=== PATIENT | male | born 1950 | race Caucasian/White ===

== ENCOUNTER → 2016-12-04 | Outpatient (CLI) | payer MEDICARE, OTHER ==
[~2016-12-04] MED LIST: ASCO500C PO; ATOR10TA15 PO; CELE50CA PO; CHOL1CAP6 PO; CITA20TA4 PO; CLON0.5T PO; DILA100C PO; FLOR250C PO; HYDR12.56 PO; LATA.005%O RIGHT EYE; LEVA750T PO; LISI-515 PO; MIAC200S NASAL; PREV4POW PO; VITA500C9 CHEW; ZANT150T2 PO; [UNRECOGNIZED DRUG - OTHER] PO
[2016-12-04 16:30] LABS: MEAN CELL VOLUME 89.8 FL (80.0-100.0); MEAN CORPUSCULAR HEMOGLOBIN 31.3 PG (27.0-34.0); MEAN CORPUSCULAR HGB CONC 34.8 % (32.0-36.0); PLATELET COUNT 203 TH/MM3 (150-450); RED BLOOD COUNT 5.35 MIL/MM3 (4.50-5.90); RED CELL DISTRIBUTION WIDTH 13.9 % (11.6-17.2); REVIEW FLAG FINAL; WHITE BLOOD COUNT 7.7 TH/MM3 (4.0-11.0)
[2016-12-04 16:40] LABS: ANION GAP 6 MEQ/L (5-15); AST (GOT) 18 U/L (15-37); BICARBONATE 29.5 MEQ/L (21.0-32.0); BLOOD UREA NITROGEN 19 MG/DL (7-18); CHLORIDE 103 MEQ/L (98-107); GLOMERULAR FILTRATION RATE 95 ML/MIN (>89); GLUCOSE,FASTING 84 MG/DL (74-99); POTASSIUM 4.1 MEQ/L (3.5-5.1); SODIUM (NA) 138 MEQ/L (136-145)
[2016-12-04 16:50] LABS: ALKALINE PHOSPHATASE 126 U/L (45-117); ALT (GPT) 23 U/L (12-78); HDL CHOLESTEROL 45.8 MG/DL (40.0-60.0); LDL CHOLESTEROL 69 MG/DL (0-99); TOTAL BILIRUBIN ADULT 0.4 MG/DL (0.2-1.0)
== END ==
LOC: PLAB 11:48
PROVIDERS: ATTEND Family Medicine
DX: I10 Essential (primary) hypertension (principal); R56.9 Unspecified convulsions; E78.5 Hyperlipidemia, unspecified; K21.9 Gastro-esophageal reflux disease without esophagitis; K58.9 Irritable bowel syndrome, unspecified; G81.90 Hemiplegia, unspecified affecting unspecified side
CPT/HCPCS: 36415; 80053; 80061; 84443; 85027

== ENCOUNTER → 2017-04-10 | Outpatient (CLI) | payer MEDICARE, OTHER ==
[2017-04-10 14:06] LABS: HEMATOCRIT 49.2 % (39.0-51.0); MEAN CELL VOLUME 91.6 FL (80.0-100.0); MEAN CORPUSCULAR HEMOGLOBIN 30.5 PG (27.0-34.0); MEAN CORPUSCULAR HGB CONC 33.3 % (32.0-36.0); PLATELET COUNT 188 TH/MM3 (150-450); RED BLOOD COUNT 5.38 MIL/MM3 (4.50-5.90); RED CELL DISTRIBUTION WIDTH 14.1 % (11.6-17.2); REVIEW FLAG FINAL; WHITE BLOOD COUNT 8.5 TH/MM3 (4.0-11.0)
[2017-04-10 14:39] LABS: ANION GAP 7 MEQ/L (5-15); AST (GOT) 23 U/L (15-37); BICARBONATE 30.4 MEQ/L (21.0-32.0); BLOOD UREA NITROGEN 15 MG/DL (7-18); CHLORIDE 99 MEQ/L (98-107); GLOMERULAR FILTRATION RATE 107 ML/MIN (>89); GLUCOSE,FASTING 94 MG/DL (74-99); SODIUM (NA) 136 MEQ/L (136-145)
[2017-04-10 14:50] LABS: ALKALINE PHOSPHATASE 120 U/L (45-117); ALT (GPT) 32 U/L (12-78); HDL CHOLESTEROL 41.2 MG/DL (40.0-60.0); LDL CHOLESTEROL 79 MG/DL (0-99); TOTAL BILIRUBIN ADULT 0.4 MG/DL (0.2-1.0)
== END ==
LOC: PLAB 10:21
PROVIDERS: ATTEND Family Medicine
DX: I10 Essential (primary) hypertension (principal); R56.9 Unspecified convulsions; E78.5 Hyperlipidemia, unspecified; K21.9 Gastro-esophageal reflux disease without esophagitis; K58.9 Irritable bowel syndrome, unspecified; H26.9 Unspecified cataract
CPT/HCPCS: 36415; 80053; 80061; 84443; 85027

== ENCOUNTER 2017-06-25 11:43 | Emergency (ER) | payer MEDICARE, OTHER ==
[2017-06-25 12:20] VITALS: BP 154/82; PULSE 74; RESP 18; TEMP 98.6; O2SAT 97
--- NOTE | 2017-06-25 13:19 | PD ---
HPI Chief Complaint: Injury Time Seen by Provider: 12:20 Travel History International Travel<30 days: No Contact w/Intl Traveler<30days: No Traveled to known affect area: No History of Present Illness HPI 67-year-old male with chief complaint left hand pain status post crush injury caused by [employer]. Patient reports pain over the fifth metacarpal. He denies numbness or tingling extremity. Patient has full range of motion of the hand. The pain is constant, worse with flexion and extension of the fingers, slightly relieved with rest. Pain scale 4/10. PFSH Past Medical History Medical History: Denies Significant Hx Arthritis: No Autoimmune Disease: No Heart Rhythm Problems: No Cancer: Yes Cardiovascular Problems: Yes High Cholesterol: Yes Chest Pain: No Congestive Heart Failure: No Cerebrovascular Accident: No Diminished Hearing: No Endocrine: No Glaucoma: Yes (INCREASED PRESSURE R EYE S/P INJURY) Genitourinary: Yes Hypertension: Yes Immune Disorder: No Implanted Vascular Access Dvce: Yes Kidney Stones: Yes Musculoskeletal: Yes (see surgical section) Neurologic: Yes (RLS) Psychiatric: No Reproductive: No Respiratory: No Immunizations Current: Yes Migraines: No Seizures: Yes (no h(x) 30 yrs) Past Surgical History Abdominal Surgery: Yes (gallbladder) Appendectomy: Yes Cardiac Surgery: No Cholecystectomy: Yes Ear Surgery: Yes (skin CA removal) Eye Surgery: Yes (lens replacement bilaterally, LEGALLY BLIND R EYE) Genitourinary Surgery: No Gynecologic Surgery: No Neurologic Surgery: Yes (shrapnel in brain removal) Oral Surgery: Yes (teeth removed) Thoracic Surgery: No Other Surgery: Yes Social History Alcohol Use: No Tobacco Use: No (QUIT 1997) Substance Use: No Allergies-Medications (Allergen,Severity, Reaction): Coded Allergies: ibuprofen (Unverified Allergy, Severe, Rash, 06/26/17) hydrocodone (Unverified Allergy, Intermediate, jitters, hyper, 06/26/17) Reported Meds & Prescriptions Reported Meds & Active Scripts Active Tylenol-Codeine #3 (Acetaminophen-Codeine) 300-30 mg Tab 1 Tab PO Q4H PRN Reported Vitamin D-3 (Cholecalciferol) 1,000 Unit Cap 1,000 Tab PO DAILY Florastor (Saccharomyces Boulardii) 250 Mg Cap 250 Mg PO BID Zantac (Ranitidine HCl) 150 Mg Tab 150 Mg PO DAILY Dilantin (Phenytoin Extended) 100 Mg Cap 100 Mg PO TID Xalatan Opth Drops (Latanoprost) 0.005% Drops 1 Drop RIGHT EYE HS Celebrex (Celecoxib) 50 Mg Cap 20 Mg PO DAILY Hydrochlorothiazide 12.5 Mg Tab 12.5 Mg PO DAILY Lisinopril 20 Mg Tab 20 Mg PO DAILY Miacalcin Nasal [place] (Calcitonin [place]) 200 Units/Act Soln 1 [place] NASAL DAILY Alternate 1 nare every other day Atorvastatin (Atorvastatin Calcium) 10 Mg Tab 10 Mg PO HS Clonazepam 0.5 Mg Tab 0.5 Mg PO BID Review of Systems Except as stated in HPI: all other systems reviewed are Neg Physical Exam Narrative GENERAL: Well-nourished, well-developed patient. SKIN: Focused skin assessment warm/dry. HEAD: Normocephalic. EYES: No scleral icterus. No injection or drainage. NECK: Supple, trachea midline. No JVD or lymphadenopathy. CARDIOVASCULAR: Regular rate and rhythm without murmurs, gallops, or rubs. RESPIRATORY: Breath sounds equal bilaterally. No accessory muscle use. GASTROINTESTINAL: Abdomen soft, non-tender, nondistended. MUSCULOSKELETAL: No cyanosis, or edema. Left hand: Pain and swelling over the dorsal aspect. No deformity. Patient has normal sensation within the digits. He is able to flex and extend all fingers. The extremity is neurovascular intact. Data Data Last Documented VS Vital Signs Date Time Temp Pulse Resp B/P Pulse Ox O2 Delivery O2 Flow Rate FiO2 06/25/17 13:53 72 18 156/72 96 21 06/25/17 12:20 98.6 Orders Hand, Complete ([id number]) (06/25/17 ) Splint Or Brace Apply/Monitor (06/25/17 13:15) Fiberglass Splint Forearm Adul (06/25/17 ) [facility] Medical Decision Making Medical Screen Exam Complete: Yes Emergency Medical Condition: Yes Differential Diagnosis Metacarpal fracture, contusion, finger sprain Narrative Course 67-year-old male with chief complaint left hand pain status post crush injury caused by [employer]. Patient reports pain over the fifth metacarpal. Patient is neurovascularly intact. Normal alignment. X-ray reveal midshaft metacarpal fracture and good alignment. Patient splinted in ulnar gutter splint advised to schedule appointment with orthopedic this week. Patient verbalizes understanding and agrees to plan. Post-Splint recheck: Extremity neurovascular intact and good alignment. Diagnosis Primary Impression: Metacarpal bone fracture Qualified Code: S62.357A - Closed nondisplaced fracture of shaft of fifth metacarpal bone of left hand, initial encounter Referrals: Sanna Wilson MD Orthopedist Additional Instructions: Keep the splint in place until follow-up with or throat. Ice and elevate the extremity. Take the medications as described. Return to the emergency department if he developed new or worsening symptoms. Scripts Acetaminophen-Codeine (Tylenol-Codeine #3)300-30 mg Tab1 Tab PO Q4H PRN (PAIN) # 12 TAB Ref 0 Prov:Harish Chan MD 06/25/17 Disposition: 01 DISCHARGE HOME Condition: Stable Carrie Metz Jun 25, 2017 13:19
[2017-06-25] MEDS ORDERED: TYLETAB34 PO (13:20)
--- NOTE | 2017-06-25 13:24 | RADRPT ---
EXAM DATE/TIME: 06/25/2017 12:39 [facility] COMPARISON: No previous studies available for comparison. INDICATIONS : Left hand pain; slammed in door today. MEDICAL HISTORY : Partial paralysis in left arm. SURGICAL HISTORY : None. ENCOUNTER: Initial ACUITY: 1 day PAIN SCORE: 10/10 LOCATION: Left hand. FINDINGS: 3 views of the left hand demonstrate an oblique minimally displaced fracture of the fifth metacarpal and the distal diaphysis. Distal fragment is displaced by 2 mm. The bones are undermineralized. No ot her fracture or dislocation is identified. 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 No soft tissue abnormality or radiopaque foreign body is identified. CONCLUSION: Undermineralized bones with oblique minimally displaced fracture of the distal fifth metacarpal. Sourav Arroyo MD on June 25, 2017 at 13:20 Board Certified Radiologist. This report was verified electronically.
[2017-06-25 13:53] VITALS: BP 156/72
== END 2017-06-25 13:54 | disposition home or self-care (01) ==
LOC: PHEFT 11:43
DX: S62.357A Nondisplaced fracture of shaft of fifth metacarpal bone, left hand, initial encounter for closed fracture (principal); X58.XXXA Exposure to other specified factors, initial encounter
CPT/HCPCS: 29125; 73130

== ENCOUNTER → 2017-08-28 | Outpatient (CLI) | payer MEDICARE, OTHER ==
[~2017-08-28] MED LIST changes: -ASCO500C PO; -CITA20TA4 PO; -LEVA750T PO; -PREV4POW PO; +TYLETAB34 PO; -VITA500C9 CHEW; -[UNRECOGNIZED DRUG - OTHER] PO
[2017-08-28 16:37] LABS: HEMATOCRIT 46.3 % (39.0-51.0); MEAN CORPUSCULAR HEMOGLOBIN 31.1 PG (27.0-34.0); MEAN CORPUSCULAR HGB CONC 34.1 % (32.0-36.0); PLATELET COUNT 233 TH/MM3 (150-450); RED BLOOD COUNT 5.08 MIL/MM3 (4.50-5.90); RED CELL DISTRIBUTION WIDTH 14.1 % (11.6-17.2); REVIEW FLAG FINAL
[2017-08-28 16:56] LABS: ANION GAP 7 MEQ/L (5-15); AST (GOT) 17 U/L (15-37); BICARBONATE 28.7 MEQ/L (21.0-32.0); BLOOD UREA NITROGEN 17 MG/DL (7-18); CHLORIDE 101 MEQ/L (98-107); GLOMERULAR FILTRATION RATE 102 ML/MIN (>89); GLUCOSE,FASTING 83 MG/DL (74-99); POTASSIUM 3.8 MEQ/L (3.5-5.1); SODIUM (NA) 137 MEQ/L (136-145)
[2017-08-28 16:57] LABS: ALT (GPT) 30 U/L (12-78)
[2017-08-28 17:31] LABS: ALKALINE PHOSPHATASE 91 U/L (45-117); HDL CHOLESTEROL 41.2 MG/DL (40.0-60.0); LDL CHOLESTEROL 72 MG/DL (0-99); TOTAL BILIRUBIN ADULT 0.3 MG/DL (0.2-1.0)
== END ==
LOC: PLAB 10:57
PROVIDERS: ATTEND Urology
DX: I10 Essential (primary) hypertension (principal); R56.9 Unspecified convulsions; E78.5 Hyperlipidemia, unspecified; K21.9 Gastro-esophageal reflux disease without esophagitis; K58.9 Irritable bowel syndrome, unspecified; H26.9 Unspecified cataract; N40.1 Benign prostatic hyperplasia with lower urinary tract symptoms; Z68.38 Body mass index [BMI] 38.0-38.9, adult
CPT/HCPCS: 36415; 80053; 80061; 84153; 84443; 85027

== ENCOUNTER → 2017-10-08 | Outpatient (CLI) | payer MEDICARE, OTHER ==
[~2017-10-08] MED LIST changes: -CHOL1CAP6 PO; +D31000CA3 PO
== END ==
LOC: PLAB 10:51
PROVIDERS: ATTEND Psychiatry & Neurology Neurology
DX: G40.109 Localization-related (focal) (partial) symptomatic epilepsy and epileptic syndromes with simple partial seizures, not intractable, without status epilepticus (principal)
CPT/HCPCS: 36415; 80186

== ENCOUNTER → 2017-12-04 | Outpatient (CLI) | payer MEDICARE, OTHER ==
[2017-12-04 13:10] LABS: HEMATOCRIT 48.2 % (39.0-51.0); HEMOGLOBIN 16.8 GM/DL (13.0-17.0); MEAN CELL VOLUME 90.4 FL (80.0-100.0); MEAN CORPUSCULAR HEMOGLOBIN 31.4 PG (27.0-34.0); MEAN CORPUSCULAR HGB CONC 34.8 % (32.0-36.0); PLATELET COUNT 207 TH/MM3 (150-450); RED BLOOD COUNT 5.33 MIL/MM3 (4.50-5.90); RED CELL DISTRIBUTION WIDTH 13.8 % (11.6-17.2); WHITE BLOOD COUNT 6.1 TH/MM3 (4.0-11.0)
[2017-12-04 13:39] LABS: ALBUMIN 3.9 GM/DL (3.4-5.0); BICARBONATE 25.6 MEQ/L (21.0-32.0); BLOOD UREA NITROGEN 19 MG/DL (7-18); CALCIUM 8.8 MG/DL (8.5-10.1); CHLORIDE 101 MEQ/L (98-107); CHOLESTEROL 145 MG/DL (120-200); CREATININE 0.78 MG/DL (0.60-1.30); GLOMERULAR FILTRATION RATE 99 ML/MIN (>89); GLUCOSE,FASTING 83 MG/DL (74-99); SODIUM (NA) 138 MEQ/L (136-145)
[2017-12-04 13:56] LABS: ALKALINE PHOSPHATASE 103 U/L (45-117); ALT (GPT) 27 U/L (12-78); AST (GOT) 20 U/L (15-37); CHOLESTEROL/ HDL RATIO 3.31 RATIO; HDL CHOLESTEROL 43.8 MG/DL (40.0-60.0); LDL CHOLESTEROL 79 MG/DL (0-99); PHENYTOIN (DILANTIN) 9.4 MCG/ML (10.0-20.0); TOTAL BILIRUBIN ADULT 0.4 MG/DL (0.2-1.0); TOTAL PROTEIN 7.8 GM/DL (6.4-8.2); TRIGLYCERIDES 111 MG/DL (42-150)
== END ==
LOC: PLAB 10:49
PROVIDERS: ATTEND Family Medicine
DX: E78.5 Hyperlipidemia, unspecified (principal); I10 Essential (primary) hypertension; R56.9 Unspecified convulsions; K21.9 Gastro-esophageal reflux disease without esophagitis; K58.9 Irritable bowel syndrome, unspecified; Z68.38 Body mass index [BMI] 38.0-38.9, adult
CPT/HCPCS: 36415; 80053; 80061; 80185; 84443; 85027

== ENCOUNTER → 2018-04-29 | Outpatient (CLI) | payer MEDICARE, OTHER ==
[2018-04-29 14:04] LABS: ALBUMIN 3.7 GM/DL (3.4-5.0); BICARBONATE 23.5 MEQ/L (21.0-32.0); BLOOD UREA NITROGEN 19 MG/DL (7-18); CALCIUM 8.5 MG/DL (8.5-10.1); CHLORIDE 105 MEQ/L (98-107); CREATININE 0.77 MG/DL (0.60-1.30); GLOMERULAR FILTRATION RATE 100 ML/MIN (>89); GLUCOSE,RANDOM 89 MG/DL (74-106); SODIUM (NA) 139 MEQ/L (136-145)
[2018-04-29 14:05] LABS: AST (GOT) 18 U/L (15-37); CHOLESTEROL 133 MG/DL (120-200); TRIGLYCERIDES 106 MG/DL (42-150)
[2018-04-29 14:09] LABS: AUTOMATED NEUTROPHIL # 3.5 TH/MM3 (1.8-7.7); BASOPHIL % 0.6 % (0.0-2.0); EOSINOPHIL # 0.2 TH/MM3 (0-0.4); EOSINOPHIL % 2.8 % (0.0-4.0); HEMATOCRIT 46.9 % (39.0-51.0); LYMPH % 26.4 % (9.0-44.0); LYMPHOCYTE # 1.5 TH/MM3 (1.0-4.8); MEAN CELL VOLUME 91.3 FL (80.0-100.0); MEAN CORPUSCULAR HEMOGLOBIN 31.2 PG (27.0-34.0); MEAN CORPUSCULAR HGB CONC 34.2 % (32.0-36.0); MEAN PLATELET VOLUME 9.9 FL (7.0-11.0); MONO % 8.9 % (0.0-8.0); MONOCYTE # 0.5 TH/MM3 (0-0.9); NEUT % 61.3 % (16.0-70.0); PLATELET COUNT 194 TH/MM3 (150-450); RED BLOOD COUNT 5.14 MIL/MM3 (4.50-5.90); RED CELL DISTRIBUTION WIDTH 14.3 % (11.6-17.2); WHITE BLOOD COUNT 5.8 TH/MM3 (4.0-11.0)
[2018-04-29 14:15] LABS: ALKALINE PHOSPHATASE 92 U/L (45-117); ALT (GPT) 32 U/L (12-78); CHOLESTEROL/ HDL RATIO 3.33 RATIO; HDL CHOLESTEROL 39.9 MG/DL (40.0-60.0); LDL CHOLESTEROL 72 MG/DL (0-99); PHENYTOIN (DILANTIN) 10.5 MCG/ML (10.0-20.0); TOTAL BILIRUBIN ADULT 0.4 MG/DL (0.2-1.0); TOTAL PROTEIN 7.4 GM/DL (6.4-8.2)
== END ==
LOC: PLAB 09:59
PROVIDERS: ATTEND Family Medicine
DX: R56.9 Unspecified convulsions (principal); K21.9 Gastro-esophageal reflux disease without esophagitis; E78.2 Mixed hyperlipidemia; I10 Essential (primary) hypertension
CPT/HCPCS: 36415; 80053; 80061; 80185; 84443; 85025